=== PATIENT | female | born 1960 | race Caucasian/White ===

== ENCOUNTER 2018-11-08 15:40 | Emergency (ER) | payer OTHER, SELFPAY ==
[2018-11-08 15:41] VITALS: BP 164/92; PULSE 74; RESP 20; TEMP 36.6; O2SAT 97; BMI 27.9
--- NOTE | 2018-11-08 15:56 | VDUE_ITS ---
Reason For Study: LUE pain Left Proximal Left jugular vein is spontaneous, widely patent, phasic, with no intraluminal echogenicity noted. Left subclavian vein is spontaneous, widely patent, phasic, with no intraluminal echogenicity noted. Left Arm Left axillary vein is spontaneous, patent, phasic, competent, compressible and demonstrates augmentation. Left brachial vein is compressible. Left cephalic vein is compressible. Left basilic vein is compressible. Left Lower Arm Left radial vein is compressible. Left ulnar vein is compressible. Interpretation Summary No evidence for acute deep venous thrombosis[left] upper extremity with patent and compressible cephalic and basilic veins. Ordering Physician: Samy Solitario Referring Physician: Tonya Panchal M.D. Performed By: Malena Farooq RVT ?
[2018-11-08 17:22] VITALS: PULSE 77; RESP 16; O2SAT 96
--- NOTE | 2018-11-08 17:41 | RAD_ITS ---
STUDY: X-RAY - CERVICAL SPINE REASON FOR EXAM: Female, 57 years old. Radiculopathy TECHNIQUE: 3 view(s) of the cervical spine were obtained. COMPARISON: None FINDINGS: There are degenerative changes of the anterior atlantoaxial articulation. Normal odontoid process. There is straightening of the normal cervical lordosis. C4 C5 C5 C6 C6 C7 there is disc space narrowing and spondylosis. The AP view shows that there is facet arthropathy. Normal disc space heights. Normal visualized intervertebral neuroforamina. Small focus of calcification in the right side carotid. RAD/Cerv Spine 2 or 3 Views IMPRESSION: Multilevel degenerative change. No visualized acute fracture. Electronically Signed: Amy Pelletier MD at 18:12 EST Tel , Service support ,
--- NOTE | 2018-11-08 17:52 | ED.VISSUMM ---
- ER Visit Summary Date of Service: 11/08/18 Chief Complaint: Left arm pain History of Present Illness: The patient is a 57 F sent from urgent care evaluation left arm pain over the past few weeks. Been more constant. No chest pains. No recent IV procedures or blood draws in the left arm. On and off neck pain in the past left lower. Using ibuprofen last dose was yesterday evening. Did initially see her PCP was given topical NSAIDs. Saw urgent care today sent here for concerns of DVT. Pain worse with movement. There is no paresthesias or loss of function. Reports pain does seem to radiate from the base of her neck down posterior aspect of the arm with intermittent tingling. Physical Examination: General: Alert and oriented ?3, no acute distress HEENT: Normocephalic, atraumatic. Moist mucosa membranes Neck: supple, nontender. Spurling's test negative bilaterally. Cardiovascular: Regular rate and rhythm, no murmurs Respiratory: Normal breath sounds, symmetric, no distress Abdomen: Soft, nontender, nondistended Extremities: Nontender, no edema, pulses intact ?4 Neuro: no focal neurological deficits. Equal symmetric strength bilaterally. Test Results: Left upper extremity ultrasound: No DVT cervical spine x-ray: Degenerative changes lower spine Emergency Department Course and Treatment: Patient history concerns for cervical radiculopathy left C7. Nursing protocol obtain ultrasound left upper extremity is negative. X-ray obtained no degenerative changes lower C-spine. Discussed radicular symptoms continue Motrin start on gabapentin with ramping instructions. Follow with PCP outpatient for further testing. All questions were answered. Treatment Plan: [] Disposition: Discharge Impression: Left C7 cervical radiculopathy This note was generated with [employer] dictation software. It may contain incorrect words, spelling, and punctuation that were not noted in review of the chart prior to signing ED Disposition - Plan for ED Patient: Disposition: Home or Assisted Living Diagnosis: Left C7 cervical radiculopathy Instructions: ED Cervical Radiculopathy Prescriptions: Gabapentin [Neurontin] 100 mg PO TID #60 capsule Referrals: Tonya Panchal MD [Primary Care Provider] - 3-5 Days Additional Instructions: Left upper extremity ultrasound negative for DVT. Cervical x-ray significant degenerative changes lower C-spine. Continue Motrin every 6 hours. Use gabapentin, use twice a day tomorrow then up to 3 times a day. Follow-up with Dr. Panchal further testing for your radicular symptoms.
[2018-11-08] MEDS: Gabapentin 100 MG Capsule PO (18:23)
[2018-11-08] MEDS: Ibuprofen 600 MG Tablet PO (18:23)
[2018-11-08 19:24] VITALS: PULSE 81; RESP 16
== END 2018-11-08 19:27 | disposition home or self-care (01) ==
PROVIDERS: Emergency Provider Emergency Medicine; Family Provider Internal Medicine; PCP Internal Medicine
DX: M54.12 Radiculopathy, cervical region (principal)
CPT/HCPCS: 72040; 93971; 99283